=== PATIENT | male | born 1975 | race African-American/Black ===

== ENCOUNTER 2017-02-23 01:33 | Emergency (ER) | payer SELFPAY ==
[~2017-02-23 01:33] MED LIST: CENTRUM PO; DURICEF PO; METAMUCIL CAN7 OZ PO; MULTIVIT/MIN PO; NICODERM C21 MG/241 TOP; PROTONIX PO; PROVHFA INH; T PO
== END 2017-02-23 01:44 | disposition home or self-care (01) ==
LOC: ER 01:33
DX: L08.9 Local infection of the skin and subcutaneous tissue, unspecified (principal); F17.200 Nicotine dependence, unspecified, uncomplicated; Z79.899 Other long term (current) drug therapy
CPT/HCPCS: 99281